=== PATIENT | female | born 1965 | race Native Hawaiian/Other Pacific Islander ===

== ENCOUNTER 2017-09-12 21:27 | Emergency (ER) | payer OTHER ==
--- NOTE | 2017-09-12 21:44 | UC ---
Hypertension HPI - HPI Summary HPI Summary: 51 YEAR OLD FEMALE PRESENTS WITH COMPLAINS OF HIGH BLOOD PRESSURE 140'S/60'S AND SEVERE RIGHT TEMPORAL HEADACHE. - History of Current Complaint Chief Complaint: UCGeneralIllness Stated Complaint: high BLOOD PRESSURE Time Seen by Provider: 09/12/17 21:42 Hx Obtained From: Patient Onset/Duration: Sudden Onset Aggravating Factor(s): Position Alleviating Factor(s): Position - Allergies/Home Medications Allergies/Adverse Reactions: Allergies Allergy/AdvReac Type Severity Reaction Status Date / Time No Known Allergies Allergy Verified 09/12/17 21:37 Home Medications: Home Medications Calcium 500 mg PO BID 09/12/17 [History Confirmed 09/12/17] Levothyroxine TAB* [Synthroid TAB*] 125 mcg PO DAILY 09/12/17 [History Confirmed 09/12/17] Melatonin 1 mg PO PRN 09/12/17 [History] PMH/Surg Hx/FS Hx/Imm Hx Previously Healthy: Yes - Surgical History Surgical History: Yes Surgery Procedure, Year, and Place: THYROIDECTOMY, HYSTERECTOMY, MYOMECTOMIES ( PRIOR TO HYSTERECTOMY) - Social History Alcohol Use: None Substance Use Type: None Smoking Status (MU): Never Smoked Tobacco Review of Systems Constitutional: Negative Skin: Negative Eyes: Negative ENT: Negative Respiratory: Negative Cardiovascular: Negative Gastrointestinal: Negative Genitourinary: Negative Motor: Negative Neurovascular: Negative Musculoskeletal: Negative Neurological: Headache Psychological: Negative All Other Systems Reviewed And Are Negative: Yes Physical Exam Triage Information Reviewed: Yes Vital Signs: Initial Vital Signs Temp 36.9 C 09/12/17 21:30 Pulse 83 09/12/17 21:30 Resp 16 09/12/17 21:30 BP 141/68 09/12/17 21:30 Pulse Ox 100 09/12/17 21:30 Eye Exam: Normal ENT Exam: Normal Dental Exam: Normal Neck exam: Normal Neck: Positive: 1 Respiratory Exam: Normal Cardiovascular Exam: Normal Abdominal Exam: Normal Musculoskeletal Exam: Normal Neurological Exam: Normal Psychological Exam: Normal Skin Exam: Normal Hypertension Course/Dx - Differential Dx/Diagnosis Provider Diagnoses: SEVERE RIGHT TEMPORAL HEADACHE. DIZZINESS Discharge - Discharge Plan Condition: Stable Disposition: OTHER Discharge Disposition Comment: PATIENT SUGGESTED TO GO TO THE ER Referrals: Araceli Arce MD [Primary Care Provider] - Additional Instructions: PATIENT SUGGESTED TO GO TO THE ER FOR SEVERE TEMPORAL HEADACHE/HIGH BLOOD PRESSURE.
[2017-09-12 21:56] VITALS: BP 116/61
== END 2017-09-12 22:16 ==
LOC: UCEAST 21:27
DX: G44.009 Cluster headache syndrome, unspecified, not intractable (principal); R42 Dizziness and giddiness; R03.0 Elevated blood-pressure reading, without diagnosis of hypertension
CPT/HCPCS: 99212; G0463

== ENCOUNTER 2017-09-12 22:33 | Emergency (ER) | payer OTHER ==
[2017-09-12 23:48] LABS: Hematocrit 39 % (35-47); Hemoglobin 12.9 g/dl (12.0-16.0); Mean Corpuscular HGB Conc 33 g/dl (31-36); Mean Corpuscular Hemoglobin 28 pg (27-31); Mean Corpuscular Volume 84 fL (80-97); Mean Platelet Volume 7 um3 (7.4-10.4); Red Blood Count 4.68 10^6/ul (4.0-5.4); Red Cell Distribution Width 13 % (10.5-15)
[2017-09-13 00:02] LABS: Albumin 4.5 g/dL (3.2-5.2); BUN/Creatinine Ratio 20.5 (8-20); Calcium 9.9 mg/dL (8.6-10.3); EGFR African American 99.4 (>60); EGFR Non-African American 77.3 (>60); Globulin 3.1 g/dL (2-4); Potassium 4.2 mmol/L (3.5-5.0); Total Bilirubin 0.3 mg/dL (0.2-1.0); Total Protein 7.6 g/dL (6.4-8.9)
[2017-09-13 00:11] LABS: Urine Bilirubin Negative (Negative); Urine Glucose Negative (Negative); Urine Nitrite Negative (Negative)
[2017-09-13 00:51] LABS: Erythrocyte Sed Rate 19 mm/Hr (0-30)
[2017-09-13] MEDS ORDERED: Ketorolac INJ* 30 MG/ML 1 ML VIAL IM ONE (01:15)
[2017-09-13] MEDS ORDERED: Prochlorperazine TAB* 5 MG PO ONE (01:15)
[2017-09-13] MEDS ORDERED: Acetaminophen TAB* 325 MG PO ONE (01:16)
[2017-09-13] MEDS ORDERED: Iohexol 350* (CONTRAST) 500 ML MDV IV ONE (03:10)
--- NOTE | 2017-09-13 04:39 | ED ---
Ginna Demarco Rebecca, scribed for Jama Alonso MD on 09/13/17 at 0038 . Headache - HPI Summary HPI Summary: Pt is a 51 y/o F referred from [facility] who presents to ED c/o ARRINGTON and elevated BP. Pt reports that prior to arriving at [facility], her BP was, at its highest, about 145/70 when she usually runs at about 100/70. ARRINGTON is located on the R side and is currently moderate, ranked 5/10. ARRINGTON characterized as dull and is not the worst ARRINGTON of her life. Has not taken pain medication. Sx aggravated by reading and alleviated by bending her head forward. Additionally c/o dizziness. Denies vomiting, dysuria, visual changes, numbness and unsteady gait. No PMHx HTN. - History Of Current Complaint Chief Complaint: EDHeadache Stated Complaint: HIGH BP/HEAD PAIN/SENT FROM [facility] Hx Obtained From: Patient Onset/Duration: Still Present Currently Pain Is: Current Pain Scale(0-10)= - 5/10, Moderate Character: Dull Location of Headache: Other: - R-sided Aggravating Factor: Other - Rading Allevating Factors: Nothing Associated Signs And Symptoms: Dizziness, Other (Noted In Comments) - Elevated BP - Allergies/Home Medications Allergies/Adverse Reactions: Allergies Allergy/AdvReac Type Severity Reaction Status Date / Time No Known Allergies Allergy Verified 09/12/17 22:40 PMH/Surg Hx/FS Hx/Imm Hx Endocrine/Hematology History: Reports: Hx Thyroid Disease - THYROIDECTOMY Respiratory History: Reports: Hx Asthma - Cancer History Cancer Type, Location and Year: THYROID CA - Surgical History Surgery Procedure, Year, and Place: THYROIDECTOMY, HYSTERECTOMY, MYOMECTOMIES ( PRIOR TO HYSTERECTOMY) Infectious Disease History: No Infectious Disease History: Reports: Hx Shingles Denies: Traveled Outside the [place] in Last 30 Days - Family History Known Family History: Positive: Respiratory Disease - Emphysema - Social History Alcohol Use: None Substance Use Type: Reports: None Smoking Status (MU): Never Smoked Tobacco Review of Systems Positive: Other - Elevated BP Positive: Other - NEGATIVE: Visual changes Negative: Vomiting Negative: dysuria Positive: Other - NEGATIVE: Unsteady gait Neurological: Other - Dizziness Positive: Headache. Negative: Numbness All Other Systems Reviewed And Are Negative: Yes Physical Exam - Summary Physical Exam Summary: Appearance: Well-appearing, Well-nourished Skin: Warm Eyes: Normal, no nystagmus, PERRl, EOMI ENT: Normal Neck: Supple, nontender Respiratory: Clear to auscultation Cardiovascular: Normal Abdomen: Soft, nontender Bowel: Present Musculoskeletal: Normal, Strength/ROM Intact, normal coordination Neurological: Normal, A&Ox3, normal strength and sensation bilaterally Psychiatric: Normal Triage Information Reviewed: Yes Vital Signs On Initial Exam: Initial Vitals Temp Pulse Resp BP Pulse Ox 98.6 F 91 14 151/64 100 09/12/17 22:36 09/12/17 22:36 09/12/17 22:36 09/12/17 22:36 09/12/17 22:36 Vital Signs Reviewed: Yes - Chao Coma Scale Best Eye Response: 4 - Spontaneous Best Motor Response: 6 - Obeys Commands Best Verbal Response: 5 - Oriented Diagnostics - Vital Signs Vital Signs Temp Pulse Resp BP Pulse Ox 09/12/17 22:36 98.6 F 91 14 151/64 100 - Laboratory Lab Results: Lab Results 09/12/17 09/12/17 09/12/17 Range/Units 23:34 23:34 23:47 WBC 5.0 (3.5-10.8) 10^3/ul RBC 4.68 (4.0-5.4) 10^6/ul Hgb 12.9 (12.0-16.0) g/dl Hct 39 (35-47) % MCV 84 (80-97) fL MCH 28 (27-31) pg MCHC 33 (31-36) g/dl RDW 13 (10.5-15) % Plt Count 287 (150-450) 10^3/ul MPV 7 L (7.4-10.4) um3 Neut % (Auto) 60.8 (38-83) % Lymph % (Auto) 27.4 (25-47) % [place] % (Auto) 9.1 H (1-9) % Eos % (Auto) 1.6 (0-6) % Baso % (Auto) 1.1 (0-2) % Absolute Neuts (auto) 3.1 (1.5-7.7) 10^3/ul Absolute Lymphs (auto) 1.4 (1.0-4.8) 10^3/ul Absolute Monos (auto) 0.5 (0-0.8) 10^3/ul Absolute Eos (auto) 0.1 (0-0.6) 10^3/ul Absolute Basos (auto) 0.1 (0-0.2) 10^3/ul Absolute Nucleated RBC 0.01 10^3/ul Nucleated RBC % 0.2 ESR Pending Sodium 136 (133-145) mmol/L Potassium 4.2 (3.5-5.0) mmol/L Chloride 102 (101-111) mmol/L Carbon Dioxide 28 (22-32) mmol/L Anion Gap 6 (2-11) mmol/L BUN 16 (6-24) mg/dL Creatinine 0.78 (0.51-0.95) mg/dL Est GFR ( Amer) 99.4 (>60) Est GFR (Non-Af Amer) 77.3 (>60) BUN/Creatinine Ratio 20.5 H (8-20) Glucose 141 H (70-100) mg/dL Calcium 9.9 (8.6-10.3) mg/dL Total Bilirubin 0.30 (0.2-1.0) mg/dL AST 25 (13-39) U/L ALT 36 (7-52) U/L Alkaline Phosphatase 86 (34-104) U/L Total Protein 7.6 (6.4-8.9) g/dL Albumin 4.5 (3.2-5.2) g/dL Globulin 3.1 (2-4) g/dL Albumin/Globulin Ratio 1.5 (1-3) Urine Color Colorless Urine Appearance Clear Urine pH 7.0 (5-9) Ur Specific [place] 1.003 L (1.010-1.030) Urine Protein Negative (Negative) Urine Ketones Negative (Negative) Urine Blood Negative (Negative) Urine Nitrate Negative (Negative) Urine Bilirubin Negative (Negative) Urine Urobilinogen Negative (Negative) Ur Leukocyte Esterase Negative (Negative) Urine Glucose Negative (Negative) Result Diagrams: 09/12/17 23:34 09/12/17 23:34 Lab Statement: Any lab studies that have been ordered have been reviewed, and results considered in the medical decision making process. - CT Head CTA CT Interpretation: No Acute Changes - No vascular occlusion. Normal Head. ED physician reviewed radiology report and agrees. CT Interpretation Completed By: Radiologist - EKG 2300 Cardiac Rate: NL - 75 bpm EKG Rhythm: Sinus Rhythm EKG Interpretation: Normal Re-Evaluation - Re-Evaluation First Eval Re-Evaluation Time: 03:00 Comment: Discussed results with the pt. Headache Course/Dx - Course Course Of Treatment: neg head ct and cta, feels better after meds, bp normalized without tx, instructed to fu with neurologist. agrees to and understnds dc instructions - Diagnoses Provider Diagnoses: Headache, Hypertension Discharge - Discharge Plan Condition: Improved Disposition: HOME Patient Education Materials: Acute Headache (ED) Referrals: Araceli Arce MD [Primary Care Provider] - Valdo Frederick MD [Medical Doctor] - Additional Instructions: PLEASE MAKE AN APPOINTMENT FIRST THING IN THE MORNING TO BE SEEN BY A NEUROLOGIST WITHIN 1 WEEK PLEASE RETURN TO THE EMERGENCY ROOM IF YOU HAVE ANY WORSENING OR CONCERNING SYMPTOMS The documentation as recorded by the Ginna pantoja Rebecca accurately reflects the service I personally performed and the decisions made by me, Jama Alonso MD.
[2017-09-13 04:51] VITALS: BP 117/51
--- NOTE | 2017-09-13 08:07 | RAD ---
CPT II: CPT II Codes: 3100F INDICATION: Persistent unilateral headache (laterality not specified) x2-3 weeks COMPARISON: None TECHNIQUE: A CT angiogram of the head and neck was performed with 80 cc of Omnipaque 350. Contiguous axial sections were obtained from the thoracic inlet through the koi of [place]. Images were reconstructed in the sagittal, coronal planes and in a 3-D volume rendered format. The distal cervical internal carotid artery diameter is used as the denominater for stenosis measurement. CTA NECK: The common and internal carotid arteries are patent without hemodynamically significant stenosis. Right: Just below the carotid bifurcation the common carotid artery measures 7 mm in short axis diameter. The carotid bulb measures 7 mm in short axis diameter yielding 0% degree stenosis. Left: Immediately below the carotid bifurcation the left common carotid artery measures 6 mm in short access diameter. The carotid bulb measures 7 mm in short axis diameter yielding 0% degree stenosis. The vertebral arteries are patent without gross abnormality. CTA of the brain: The internal carotid, anterior and middle cerebral arteries appear are patent without high grade stenosis or occlusion. The vertebral, basilar and posterior cerebral arteries appear patent without high grade stenosis or occlusion. The left posterior communicating artery is either extremely diminutive or absent. No focal luminal filling defect, aneurysm or vascular malformation is seen. IMPRESSION: Normal CT angiography of the head and neck.
== END 2017-09-13 04:53 | disposition home or self-care (01) ==
LOC: ED 22:33
DX: I10 Essential (primary) hypertension (principal); R51 Headache; R42 Dizziness and giddiness
CPT/HCPCS: 36415; 70496; 70498; 80053; 81003; 84702; 85025; 85652; 93005; 96372; 99283; A9270-GY; J1885; Q9967